=== PATIENT | female | born 1945 | race Caucasian/White ===

== ENCOUNTER → 2017-12-12 | Outpatient (CLI) | payer MEDICARE ==
[~2017-12-12] MED LIST: ASP325T PO; CLN.1T PO; MULT-963 PO; NEBI5TAB8 PO; NF-TELM20T PO; NFNEB10T PO; NFPRILOC40 PO; OXYB10TA PO; RNT150T PO; SIMV20TA3 PO; SIMV40TA4 PO; TELM1TAB3 PO; TLT2T PO
== END ==
LOC: CARD 14:03
PROVIDERS: ATTEND Internal Medicine Cardiovascular Disease
DX: I48.0 Paroxysmal atrial fibrillation (principal); I10 Essential (primary) hypertension; M79.89 Other specified soft tissue disorders; Z86.73 Personal history of transient ischemic attack (TIA), and cerebral infarction without residual deficits
CPT/HCPCS: 93225; 93226

== ENCOUNTER → 2018-01-06 | Outpatient (CLI) | payer MEDICARE | LOC: CARD 08:50 | PROVIDERS: ATTEND Internal Medicine Cardiovascular Disease | DX: I48.0 Paroxysmal atrial fibrillation (principal); I10 Essential (primary) hypertension; M79.89 Other specified soft tissue disorders; Z86.73 Personal history of transient ischemic attack (TIA), and cerebral infarction without residual deficits | CPT/HCPCS: 93306; 93351 ==

== ENCOUNTER 2018-06-12 11:15 | Outpatient (CLI) | payer MEDICARE ==
[~2018-06-12] VITALS: Ht 170.2 cm; Wt 66.7 kg
[2018-06-12] MEDS ORDERED: SIMV20TA3 PO (12:04)
[2018-06-12] MEDS ORDERED: RIVA20TA PO (12:04)
[2018-06-12] MEDS ORDERED: MELA1TAB15 PO (12:04)
[2018-06-12] MEDS ORDERED: OMEP40CA36 PO (12:04)
[2018-06-12] MEDS ORDERED: LOSA100T8 PO (12:04)
[2018-06-12] MEDS ORDERED: METO-395 PO (12:04)
[2018-06-12] MEDS ORDERED: DOXA2TAB2 PO (12:04)
[2018-06-12] MEDS ORDERED: MIRA25TA PO (12:04)
== END 2018-06-12 12:05 | disposition home or self-care (01) ==
LOC: PREOP 11:15
PROVIDERS: ATTEND Surgery
DX: Z01.818 Encounter for other preprocedural examination (principal)

== ENCOUNTER 2018-06-17 08:45 | Day surgery (SDC) | payer MEDICARE ==
[~2018-06-17] VITALS: Ht 170.2 cm; Wt 66.7 kg
[~2018-06-17 08:45] MED LIST changes: +DOXA2TAB2 PO; +LOSA100T8 PO; +MELA1TAB15 PO; +METO-395 PO; +MIRA25TA PO; +OMEP40CA36 PO; +RIVA20TA PO
[2018-06-17 09:00] VITALS: BP 128/82
[2018-06-17] MEDS ORDERED: NS IV 500 ML 500 ML IV PRN (09:00)
[2018-06-17] MEDS ORDERED: fentaNYL INJECTION 100 MCG/2 ML AMP IVP ONE (09:15)
[2018-06-17] MEDS ORDERED: MIDAZOLAM 2 MG/2 ML (VERSED) VIAL IVP ONE (09:15)
[2018-06-17] MEDS ORDERED: LIDOCAINE JELLY 2% 6 ML SYRINGE MM PRN (09:15)
[2018-06-17] MEDS ORDERED: NS IV 500 ML 500 ML ONE (09:29)
[2018-06-17] MEDS ORDERED: LIDOCAINE JELLY 2% 6 ML SYRINGE ONE (10:04)
[2018-06-17] MEDS ORDERED: fentaNYL INJECTION 100 MCG/2 ML AMP ONE ×2 (10:04)
[2018-06-17] MEDS ORDERED: MIDAZOLAM 2 MG/2 ML (VERSED) VIAL ONE ×4 (10:04→10:38)
--- NOTE | 2018-06-17 10:14 | Conscious Sedation/ASA ---
Conscious Sedation Pre-Proced Time 09:45 ASA Score 2 For ASA 3 and 4: Consider anesthesia and medical clearance. Also, for patients with a history of failed moderate sedation consider anesthesia. Airway Lungs Heart ASA score ASA 1: a normal healthy patient ASA 2: a patient with a mild systemic disease (mid diabetes, controlled hypertension, obesity ASA 3: a patient with a severe systemic disease that limits activity (angina , COPD, prior Myocardial infarction) ASA 4: a patient with an incapacitating disease that is a constant threat to life (CHF, renal failure) ASA 5: a moribund patient not expected to survive 24 hrs. (ruptured aneurysm) ASA 6: a declared brain patient whose organs are being harvested. For emergent operations, add the letter E after the classification Mallampati Classification Grade 2 Sedation Plan Analgesia, Amnesia, Plan communicated to team members, Discussed options with patient/fam, Discussed risks with patient/fam The patient is an appropriate candidate to undergo the planned procedure, sedation, and anesthesia. The patient immediately re-assessed prior to indication. TRA VILLA MD Jun 17, 2018 10:14 am
--- NOTE | 2018-06-17 10:14 | Progress Note-Pre Operative ---
Pre-Operative Progress Note H&P Reviewed The H&P was reviewed, patient examined and no changes noted. Date Seen by Provider: Jun 17, 2018 Time Seen by Provider: :45 Date H&P Reviewed: Jun 17, 2018 Time H&P Reviewed: :45 Pre-Operative Diagnosis: hx polyp, family hx colon ca TRA VILLA MD Jun 17, 2018 10:14 am
[2018-06-17] MEDS ORDERED: HYDROcodone/APAP 5 MG/325 MG (LORTAB) TAB PO PRN (10:15)
[2018-06-17] MEDS ORDERED: ACETAMINOPHEN 325 MG TABLET PO PRN (10:15)
[2018-06-17] MEDS ORDERED: ONDANSETRON 4 MG/2 ML (SDV) Z0FRAN IV PRN (10:15)
[2018-06-17] MEDS ORDERED: fentaNYL INJECTION 100 MCG/2 ML AMP IVP PRN (10:15)
--- NOTE | 2018-06-17 10:19 | Discharge Inst-Surgical ---
D/C Lap Instructions-ALLEN Follow Up 5 years Activity as tolerated High Fiber Diet 25g or more per day Avoid Alcohol, Caffeine, Spicy [place] and Acid foods. Drink 64 fluid oz or more of fluids per day. Symptoms to Report: Fever over 101 degree F, Nausea/Vomiting If any problems/questions: Contact your physician or go to Emergency Room TRA VILLA MD Jun 17, 2018 10:19 am
--- NOTE | 2018-06-17 11:06 | Progress Note-Post Operative ---
Post-Operative Progess Note Surgeon (s)/Martial Arts Instructor (s) Surgeon TRA VILLA MD Martial Arts Instructor: none Pre-Operative Diagnosis hx polyp, family hx colon ca Post-Operative Diagnosis normal colon and rectum Procedure & Operative Findings Date of Procedure 06/17/18 Procedure Performed/Findings Colonoscopy Anesthesia Type CS Estimated Blood Loss Estimated blood loss (mL): minimal Specimens/Packing Specimens Removed none TRA VILLA MD Jun 17, 2018 11:06 am
[2018-06-17 11:20] VITALS: BP 138/79
[2018-06-17 11:45] VITALS: BP 159/89
[2018-06-17 11:55] VITALS: BP 159/89
--- NOTE | 2018-06-17 15:17 | OPERATIVE REPORT ---
DATE OF SERVICE: 06/17/2018 ATTENDING PRIMARY CARE PHYSICIAN: Dr. Rolle. PREOPERATIVE DIAGNOSIS: Screening colonoscopy with family history of colon cancer and personal history of colon polyps. POSTOPERATIVE DIAGNOSIS: Normal colon and rectum. PROCEDURE: Colonoscopy. SURGEON: Tra Villa MD ANESTHESIA: Conscious sedation. ESTIMATED BLOOD LOSS: Minimal. FINDINGS: No significant hemorrhoids identified. No diverticulosis. Remainder of the colon and rectum were normal. No polyps identified. DISPOSITION: The patient tolerated the procedure well. INDICATIONS: The patient is a 73-year-old female in need of a followup screening colonoscopy. She did have a colonoscopy in 2008 where a tubular adenoma was identified and removed. A repeat colonoscopy was done in 2012, which did not show any abnormalities. She does have a family history of colon cancer with her father being diagnosed with the disease at around age 76. She does not report any major issues with diarrhea nor constipation as well as no red blood per rectum nor any dark tarry stools. DESCRIPTION OF PROCEDURE: The patient was brought to the endoscopy suite, laid in the left lateral decubitus position. After adequate IV pain and sedating medications and conscious sedation anesthesia, a digital rectal examination was performed. No significant hemorrhoids identified. Normal sphincter tone was felt and there were no palpable masses. The endoscope was then intubated into the anus and rectum gently insufflated. The endoscope was then advanced to the valves of [place]ink[place] of the rectum with no polyps or any neoplasms identified. We then proceeded through the sigmoid colon where no diverticulosis identified. The endoscope was then advanced through the remainder of the descending, transverse and ascending colon to the cecum. These segments were normal. There were no polyps or any neoplasms identified throughout the colon or rectum. The endoscope was then slowly withdrawn while taking a second look and suctioning of residual air with no additional findings. The patient tolerated the procedure well. We will recommend continued medical management with a high fiber diet with at least 25 grams of fiber per day as well as 64 fluid ounces of water daily to promote soft stools on a daily basis. We will recommend a followup colonoscopy in approximately 5 years. Job ID: [id number] DocumentID: [id number] Dictated Date: 06/17/2018 10:52:37 Trailer Driver Date: 06/17/2018 15:16:10 Dictated By: TRA VILLA MD
== END 2018-06-17 12:00 | disposition home or self-care (01) ==
LOC: ENDO 08:45
PROVIDERS: ATTEND Surgery
DX: Z12.11 Encounter for screening for malignant neoplasm of colon (principal); Z80.0 Family history of malignant neoplasm of digestive organs; Z86.010 Personal history of colon polyps; I10 Essential (primary) hypertension; E78.00 Pure hypercholesterolemia, unspecified; I48.91 Unspecified atrial fibrillation; K21.9 Gastro-esophageal reflux disease without esophagitis; K59.09 Other constipation; Z96.652 Presence of left artificial knee joint; Z79.899 Other long term (current) drug therapy; Z79.01 Long term (current) use of anticoagulants; Z87.891 Personal history of nicotine dependence

== ENCOUNTER → 2018-08-12 | Outpatient (CLI) | payer MEDICARE ==
--- NOTE | 2018-08-12 16:46 | Diagnostic Imaging Report ---
EXAMINATION: Magnetic resonance imaging of the right knee without intravenous contrast DATE: August 12, 2018. COMPARISON: None. INDICATION: 73-year-old female, right knee pain. Injury in March 2018. Persistent knee pain and swelling. TECHNIQUE: Multiplanar, multisequence non contrast enhanced MR imaging was accomplished. FINDINGS: MENISCI: There is signal within the body and posterior horn of the medial meniscus not meeting strict MRI criteria for tear. There is a longitudinal horizontal type tear involving the anterior horn, body, and posterior horn of the lateral meniscus. LIGAMENTS AND TENDONS: The anterior and posterior cruciate ligaments are intact. The medial collateral ligament is intact. The iliotibial band, mid third lateral capsular ligament, fibular collateral ligament, biceps femoris tendon and conjoined tendon are intact. The quadriceps tendon and patella ligament are intact. JOINT: There is mild superficial irregularity of the cartilage of the median patellar ridge and medial patellar facet. There is very minimal degenerative-related subchondral edema underlying the medial patellar facet. The medial and lateral compartment cartilage is grossly intact. There is a small knee joint effusion without identified intra-articular body or prominent synovitis. BONE: The additional bone marrow signal is unremarkable. Specifically, negative for fracture, osteomyelitis, osteonecrosis, or marrow replacing process. BURSAE AND SOFT TISSUES: There is a small slit-like Grossman's cyst. There is mild soft tissue edema adjacent to the knee joint capsule. There is nonspecific prepatellar subcutaneous edema. IMPRESSION: 1. Longitudinal horizontal type tear involving the entire lateral meniscus. 2. Signal in the body and posterior horn of the medial meniscus meeting strict MRI criteria for definite diagnosis of tear. 3. Intact anterior and posterior cruciate ligaments. Additional ligaments and tendons are intact. 4. Very mild patellofemoral compartment arthritis. Small knee joint effusion without identified intra-articular body or prominent synovitis. 5. Small slit-like Grossman's cyst. 6. No acute fracture, bone contusion, or evidence of osteonecrosis. Dictated by: Dictated on workstation # [id number]
== END ==
LOC: RAD 15:21
PROVIDERS: ATTEND Orthopaedic Surgery
DX: M23.261 Derangement of other lateral meniscus due to old tear or injury, right knee (principal); M23.231 Derangement of other medial meniscus due to old tear or injury, right knee; M17.11 Unilateral primary osteoarthritis, right knee; M71.21 Synovial cyst of popliteal space [Baker], right knee
CPT/HCPCS: 73721

== ENCOUNTER → 2018-11-25 | Outpatient (CLI) | payer MEDICARE ==
[~2018-11-25] VITALS: Ht 170.2 cm; Wt 67.1 kg
[~2018-11-25] MED LIST changes: +KCL 10 MEQ TAB (MICRO K) PO ONE; +LOSA100T57 PO; -LOSA100T8 PO; +NS IV 1000 ML 1,000 ML IV NR; -RIVA20TA PO; +RIVA20TA2 PO
[2018-11-25 11:12] VITALS: BP 104/77
[2018-11-25 11:32] LABS: HEMOGLOBIN 13.7 G/DL (11.5-16.0); MEAN PLATELET VOLUME 10.3 FL (7.4-10.4); RED CELL DISTRIBUTION WIDTH 13.4 % (10.0-14.5); WHITE BLOOD COUNT 8.9 10^3/uL (4.3-11.0)
[2018-11-25 11:53] LABS: BUN/CREATININE RATIO 23; CALCIUM 8.9 MG/DL (8.5-10.1); CARBON DIOXIDE 24 MMOL/L (21-32); CHLORIDE 104 MMOL/L (98-107); CREATININE SERUM 0.86 MG/DL (0.60-1.30); GFR ESTIMATED > 60; GLUCOSE 131 MG/DL (70-105); LIPASE 16 U/L (8-78); POTASSIUM 3.3 MMOL/L (3.6-5.0); SODIUM 138 MMOL/L (135-145)
--- NOTE | 2018-11-25 12:58 | NUR ---
THIS RN CALLED LAB RESULTS TO [facility], NEW ORDERS RECEIVED FOR POTASSIUM 10MEQ TABS, 2 TABS.
[2018-11-25 13:15] VITALS: BP 104/77
== END ==
LOC: SDC 10:42
PROVIDERS: ATTEND Nurse Practitioner
DX: E86.0 Dehydration (principal); R11.2 Nausea with vomiting, unspecified; R19.7 Diarrhea, unspecified; R68.83 Chills (without fever); R52 Pain, unspecified
CPT/HCPCS: 36415; 80048; 83690; 85027; 86141; 87804; 96360; 96361

== ENCOUNTER → 2019-12-29 | Outpatient (CLI) | payer MEDICARE ==
[~2019-12-29] MED LIST changes: -KCL 10 MEQ TAB (MICRO K) PO ONE; -METO-395 PO; +MTP100TCR PO; -NS IV 1000 ML 1,000 ML IV NR; +OMEP40CA27 PO; -OMEP40CA36 PO; +SIMV20TA26 PO
--- NOTE | 2019-12-30 20:18 | Diagnostic Imaging Report ---
INDICATION: Routine screening. Comparison is made with prior mammogram from 06/08/2018 and 01/29/2010. 2-D and 3-D bilateral screening mammography was performed with CAD. The current study was also evaluated with a Computer Aided Detection (CAD) system. Both breasts are heterogeneously dense, limiting the sensitivity of mammography. Postbiopsy changes with marker clip in the upper and slightly outer left breast are noted. No dominant mass or malignant appearing microcalcifications are seen. There are benign parenchymal and vascular calcifications bilaterally. Axillae are unremarkable. IMPRESSION: No mammographic features suspicious for malignancy are identified. ACR BI-RADS Category 2: Benign findings. Result letter will be mailed to the patient. Note: At least 10% of breast cancer is not imaged by mammography. Dictated by: Dictated on workstation # [id number]
== END ==
LOC: RAD 15:12
PROVIDERS: ATTEND Internal Medicine
DX: Z12.31 Encounter for screening mammogram for malignant neoplasm of breast (principal)
CPT/HCPCS: 77063; 77067

== ENCOUNTER → 2020-06-29 | Outpatient (CLI) | payer MEDICARE | LOC: CARD 13:00 | PROVIDERS: ATTEND Nurse Practitioner Family | DX: I34.0 Nonrheumatic mitral (valve) insufficiency (principal); I10 Essential (primary) hypertension; I48.0 Paroxysmal atrial fibrillation; I27.21 Secondary pulmonary arterial hypertension | CPT/HCPCS: 93306 ==

== ENCOUNTER 2021-01-03 05:42 | Outpatient (CLI) | payer MEDICARE ==
[~2021-01-03] VITALS: Ht 170.2 cm; Wt 66.8 kg
[2021-01-03] MEDS ORDERED: ACET-3075 PO (10:11)
== END 2021-01-04 10:05 | disposition home or self-care (01) ==
LOC: PREOP 05:42
PROVIDERS: ATTEND Specialist
DX: Z01.818 Encounter for other preprocedural examination (principal)

== ENCOUNTER 2021-01-05 09:36 | Day surgery (SDC) | payer MEDICARE ==
[~2021-01-05] VITALS: Ht 170 cm; Wt 66.8 kg
[~2021-01-05 09:36] MED LIST changes: +ACET-3075 PO
[2021-01-05] MEDS ORDERED: PHENYLEPHRINE 10% OPHTH (NEO-SYN) 5 ML BTL OU PRN (09:45)
[2021-01-05] MEDS ORDERED: TROPICAMIDE 1% OPH SOLN (MYDRIACYL) 15 ML BTL OU PRN (09:45)
[2021-01-05] MEDS ORDERED: TETRACAINE 0.5% OPHTH SOLN 4 ML BTL (SINGLE DOSE ONLY) OU PRN (09:45)
[2021-01-05 09:56] VITALS: BP 159/76
--- NOTE | 2021-01-05 10:41 | Ophthalmologist Pre-Op Note ---
Pre-Operative Progress Note H&P Reviewed The H&P was reviewed, patient examined and no changes noted. Date H&P Reviewed: January 05, 2021 Time H&P Reviewed: 10:22 Pre-Op Dx Secondary Cataract, Right Eye NAVID VILLALOBOS MD January 05, 2021 10:41
--- NOTE | 2021-01-05 10:42 | Ophthalmology Operative Report ---
YAG Capsulotomy PREOPERATIVE DIAGNOSIS: Secondary Cataract Right Eye POSTOPERATIVE DIAGNOSIS: Secondary Cataract Right Eye PROCEDURE: YAG Capsulotomy, right eye SURGEON: Saul Villalobos ANESTHESIA: Topical anesthesia COMPLICATIONS: None ESTIMATED BLOOD LOSS: Minimal DESCRIPTION OF PROCEDURE: After proper informed consent was obtained, the patient's, a 75 female, right eye received one drop of Tropicamide and one drop of Tetracaine. The patient was then placed at the YAG laser and using a power of [3.5 ] millijoules and [ 16] bursts were used to fashion a central capsulotomy. The patient tolerated the procedure well without complications SAUL VILLALOBOS MD January 05, 2021 10:42
== END 2021-01-05 10:35 ==
LOC: SDC 09:36
PROVIDERS: ATTEND Specialist
DX: H26.491 Other secondary cataract, right eye (principal); M19.90 Unspecified osteoarthritis, unspecified site; R03.0 Elevated blood-pressure reading, without diagnosis of hypertension; Z87.891 Personal history of nicotine dependence; Z98.890 Other specified postprocedural states

== ENCOUNTER → 2021-01-10 | Outpatient (CLI) | payer MEDICARE ==
--- NOTE | 2021-01-10 15:49 | Diagnostic Imaging Report ---
INDICATION: Routine screening. COMPARISON: Prior mammogram 12/29/2019 and 06/08/2018. EXAMINATION: 2D and 3D bilateral screening mammography was performed with CAD. The current study was also evaluated with a Computer Aided Detection (CAD) system. FINDINGS: Both breasts remain heterogeneously dense, limiting the sensitivity of mammography. Biopsy changes on the left are again noted. No mass or malignant appearing microcalcifications are seen. Axillae are unremarkable. IMPRESSION: No mammographic features suspicious for malignancy are identified. ACR BI-RADS Category 2: Benign findings. Result letter will be mailed to the patient. Note: At least 10% of breast cancer is not imaged by mammography. Dictated by: Dictated on workstation # [id number]
== END ==
LOC: RAD 14:26
PROVIDERS: ATTEND Nurse Practitioner Family
DX: Z12.31 Encounter for screening mammogram for malignant neoplasm of breast (principal)
CPT/HCPCS: 77063; 77067

== ENCOUNTER 2021-01-23 05:29 | Outpatient (RCR) | payer MEDICARE ==
[~2021-01-23] VITALS: Ht 170.2 cm; Wt 68.1 kg
[~2021-01-23 05:29] MED LIST changes: +TRM50T PO
== END 2021-01-23 08:42 | disposition home or self-care (01) ==
LOC: PREOP 05:29
PROVIDERS: ATTEND Orthopaedic Surgery
DX: Z01.812 Encounter for preprocedural laboratory examination (principal); S72.001A Fracture of unspecified part of neck of right femur, initial encounter for closed fracture; Z20.822 Contact with and (suspected) exposure to COVID-19
CPT/HCPCS: 87635

== ENCOUNTER 2021-01-24 09:48 | Day surgery (SDC) | payer MEDICARE ==
[~2021-01-24] VITALS: Ht 170.2 cm; Wt 68.1 kg
[2021-01-24] VITALS (13 sets, daily range): BP systolic 137–200; BP diastolic 72–100
[~2021-01-24 09:48] MED LIST changes: +oxyCODONE/APAP 5/325MG (PERCOCET 5) TABLET PO PRN
--- NOTE | 2021-01-24 10:04 | Progress Note-Pre Operative ---
Pre-Operative Progress Note H&P Reviewed The H&P was reviewed, patient examined and no changes noted. Date Seen by Provider: Jan 24, 2021 Time Seen by Provider: 10:04 Date H&P Reviewed: Jan 24, 2021 Time H&P Reviewed: 10:04 Pre-Operative Diagnosis: impacted right femoral neck fracture SHARON VALVERDE MD Jan 24, 2021 10:04
--- NOTE | 2021-01-24 10:05 | Progress Note-Post Operative ---
Post-Operative Progess Note Surgeon (s)/Automotive Parts Salesperson (s) Surgeon SHARON VALVERDE MD Automotive Parts Salesperson: Jovani Apodaca Pre-Operative Diagnosis impacted right femoral neck fracture Post-Operative Diagnosis impacted right femoral neck fracture Procedure & Operative Findings Date of Procedure 01/24/21 Procedure Performed/Findings right hip percutaneous screw fixation Anesthesia Type spinal Estimated Blood Loss Estimated blood loss (mL): minimal Specimens/Packing Specimens Removed none Packing: none SHARON VALVERDE MD Jan 24, 2021 10:05
[2021-01-24] MEDS ORDERED: ceFAZolin INJECTION 1,000 MG ONE (10:10)
[2021-01-24] MEDS ORDERED: WATER (STERILE) FOR INJECTION 10 ML ONE (10:11)
[2021-01-24] MEDS ORDERED: ceFAZolin INJECTION 1,000 MG in WATER (STERILE) FOR INJECTION 10 ML IV ONE (10:15)
[2021-01-24] MEDS: LACTATED RINGERS 1,000 ML IV PRN ×2 (10:28→11:59)
[2021-01-24] MEDS ORDERED: proPOfol 200 MG/20 ML (DIPRIVAN) VIAL IV ONE (10:43)
[2021-01-24] MEDS ORDERED: fentaNYL INJ 100 MCG/2 ML AMP ONE (10:43)
[2021-01-24] MEDS ORDERED: SEVOFLURANE (ULTANE) 15 ML INHAL SOLN ONE (10:43)
[2021-01-24] MEDS ORDERED: LIDOCAINE PF 2% 5 ML (XYLOCAINE) VIAL ONE (10:43)
[2021-01-24] MEDS ORDERED: ONDANSETRON 4 MG/2 ML (SDV) Z0FRAN ONE (10:43)
[2021-01-24] MEDS ORDERED: MIDAZOLAM 2 MG/2 ML (VERSED) VIAL ONE (11:09)
[2021-01-24] MEDS ORDERED: BUPIVACAINE 0.25% 30 ML (SENSORCAINE) VIAL ONE (11:34)
[2021-01-24] MEDS ORDERED: BUPIVACAINE 0.5% 30 ML (SENSORCAINE) VIAL ONE (11:34)
--- NOTE | 2021-01-24 12:47 | Diagnostic Imaging Report ---
EXAMINATION: Fluoroscopy at 11:44 AM. INDICATION: Right hip pinning. TECHNIQUE: Fluoroscopic assistance was provided for Dr. Crenshaw during his right hip pinning procedure. 41.8 seconds of fluoroscopy time was utilized. FINDINGS: AP and lateral spot films of the right femur were obtained from the OR. The recent CT right hip exam of 01/22/2021 did show a nondisplaced slightly impacted subcapital fracture of the right femoral neck. There are now 3 orthopedic fixation screws obliquely traversing the right femoral neck and femoral head. The orthopedic hardware seems to be in good position and the fracture fragments remain nondisplaced. IMPRESSION: Fluoroscopic assistance was provided for Dr. Crenshaw. Dictated by: Dictated on workstation # [id number]
--- NOTE | 2021-01-24 13:56 | Physical Therapy Progress Note ---
Therapy Progress Note Orders received for PT evaluation. Patient is still not back to her room from surgery. Will perform evaluation in the morning. RAY ASTORGA PT Jan 24, 2021 13:56
[2021-01-24] MEDS ORDERED: PATIENT MAY USE OWN MEDS, ALL MC SCH ×2 (16:45→17:15)
[2021-01-24] MEDS ORDERED: ONDANSETRON 4 MG/2 ML (SDV) Z0FRAN IVP PRN (17:15)
[2021-01-24] MEDS: fentaNYL INJ 100 MCG/2 ML AMP IVP PRN ×2 (17:50→23:31)
[2021-01-24] MEDS: LOSARTAN 100 MG (COZAAR) TABLET PO SCH (18:05)
--- NOTE | 2021-01-24 18:30 | OPERATIVE REPORT ---
DATE OF SERVICE: 01/24/2021 PREOPERATIVE DIAGNOSIS: Impacted right femoral neck fracture. POSTOPERATIVE DIAGNOSIS: Impacted right femoral neck fracture. PROCEDURE: Right femoral neck percutaneous screw fixation. SURGEON: Eligio Valverde MD SUPERVISOR ABATTOIR: Jovani Apodaca, who assisted throughout the procedure and closed the incision. ANESTHESIA: Spinal by Dr. Velasco. ESTIMATED BLOOD LOSS: Minimal. DRAINS: None. COMPLICATIONS: None. POSTOPERATIVE PLAN: Toe touch weightbearing right lower extremity. MATERIALS: Synthes 7.3 short threaded cancellous screws. The patient was transferred to the recovery room awake and in stable condition. STATEMENT OF MEDICAL NECESSITY: The patient is a 75-year-old female, who fell last week. She complained of hip pain, presented to the office and was found to have an impacted right femoral neck fracture identified by CT scan. It was recommended that the patient undergo operative fixation to ensure that it stayed well reduced with her ambulatory status. DESCRIPTION OF PROCEDURE: After risks and benefits of procedure were discussed and questions were answered, an informed consent was signed and placed on chart. The operative site was confirmed in the preoperative holding area initialed by the surgeon. The patient was then transferred to the operating room and after adequate levels of regional anesthetic were obtained, a timeout was called, confirming the operative site. The patient was carefully placed on the fracture table and fluoroscopy in the AP and lateral planes revealed anatomic alignment of the fracture. The right lower extremity was prepped and draped in the usual sterile fashion. Through a stab incision laterally, three guidewires were passed into the femoral head. These were felt to be in excellent position fluoroscopically. These were then overdrilled an 85 mm 7.3 Synthes screws were placed, all with excellent purchase. Fluoroscopy in the AP and lateral planes revealed well-reduced fracture with well-placed hardware. The wound was copiously irrigated and closed with 3-0 nylon in vertical mattress interrupted fashion. Incision was infiltrated with plain Marcaine. A soft dressing was applied and the patient was transferred to the recovery room awake and in stable condition. Job ID: [id number] DocumentID: [id number] Dictated Date: 01/24/2021 11:58:45 Cytology Teacher Date: 01/24/2021 18:28:04 Dictated By: ELIGIO VALVERDE MD
[2021-01-24] MEDS: oxyCODONE/APAP 5/325MG (PERCOCET 5) TABLET PO PRN ×2 (19:34→23:31)
[2021-01-24] MEDS: doxAzosin 4 MG (CARDURA) TAB PO SCH (20:35)
[2021-01-24] MEDS ORDERED: ACETAMINOPHEN 500 MG TAB (TYLENOL) PO NR (21:00)
[2021-01-24] MEDS ORDERED: diphenhydrAMINE 25 MG TAB (BENADRYL) PO NR (21:00)
[2021-01-24] MEDS: meTOprolol SUCCINATE 100 MG (TOPROL XL) TAB PO SCH (21:04)
[2021-01-25 01:52] VITALS: BP 161/67
[2021-01-25] MEDS: fentaNYL INJ 100 MCG/2 ML AMP IVP PRN ×2 (02:00→06:31)
[2021-01-25] MEDS: oxyCODONE/APAP 5/325MG (PERCOCET 5) TABLET PO PRN ×2 (04:08→08:52)
[2021-01-25 04:10] VITALS: BP 144/67
--- NOTE | 2021-01-25 08:06 | Progress Note ---
Standard Progress Note Progress Notes/Assess & Plan Date Seen by a Provider: Jan 25, 2021 Time Seen by a Provider: 08:04 Progress/Assessment & Plan admitted due to spinal persistence no complaints Vital Signs Date Time Temp Pulse Resp B/P (MAP) Pulse Ox O2 Delivery O2 Flow Rate FiO2 01/25/21 04:10 36.5 60 18 144/67 (92) 97 Room Air 01/25/21 01:52 59 161/67 (98) 01/24/21 23:18 36.3 64 18 184/74 (110) 96 Room Air 01/24/21 21:53 62 185/86 (119) 01/24/21 20:38 Room Air 01/24/21 20:26 36.8 62 18 200/90 (126) 96 Room Air 01/24/21 17:31 Room Air 01/24/21 17:29 36.4 65 20 184/100 (128) 96 Room Air 01/24/21 13:40 35.6 56 18 191/86 100 Room Air 01/24/21 13:10 35.6 48 18 169/78 100 Room Air 01/24/21 12:40 Room Air 01/24/21 12:40 35.7 52 18 162/82 100 Room Air 01/24/21 12:40 36.1 20 157/79 (105) 100 Room Air 01/24/21 12:30 Room Air 01/24/21 12:30 20 162/85 (110) 100 Room Air 01/24/21 12:20 20 161/83 (109) 100 Room Air 01/24/21 12:15 Room Air 01/24/21 12:10 20 154/77 (102) 100 Room Air 01/24/21 12:00 Room Air 01/24/21 12:00 20 137/75 (95) 100 Room Air 01/24/21 11:54 36.1 20 137/72 (93) 100 Room Air 01/24/21 11:54 Room Air 01/24/21 10:10 36.6 65 18 177/92 (120) 95 Room Air I & O 01/25/21 07:00 Intake Total 2530 ml Output Total 700 ml Balance 1830 ml RLE--dressing intact. intact DF and PF of toes and ankle. sensation intact throughout s/p R hip perc screws regular diet FU 2 weeks percocet for pain PWB ZAFUTA,SHARON P MD Jan 25, 2021 08:06
[2021-01-25 08:23] VITALS: BP 171/75
[2021-01-25] MEDS: LOSARTAN 100 MG (COZAAR) TABLET PO SCH (08:50)
[2021-01-25] MEDS: meTOprolol SUCCINATE 100 MG (TOPROL XL) TAB PO SCH (08:50)
[2021-01-25] MEDS: doxAzosin 4 MG (CARDURA) TAB PO SCH (08:50)
[2021-01-25] MEDS ORDERED: SIMvastatin 20 MG (ZOCOR) TAB PO SCH (09:00)
[2021-01-25] MEDS ORDERED: RIVAROXABAN 20 MG TABLET (XARELTO) PO NR (09:00)
[2021-01-25] MEDS ORDERED: LOSARTAN 100 MG (COZAAR) TABLET PO SCH (09:00)
--- NOTE | 2021-01-25 10:30 | Physical Therapy Evaluation ---
PT Evaluation-General Medical Diagnosis Admission Date January 24, 2021 Medical Diagnosis: right femoral neck fracture Onset Date: Jan 19, 2021 Therapy Diagnosis Therapy Diagnosis: debility Height/Weight Height (Feet): 5 Height (Inches): 7.00 Weight (Pounds): 148 Weight (Ounces): 0.0 Precautions Precautions/Isolations: Fall Prevention, Standard Precautions Weight Bear Status Right Lower Extremity: Right Touch Toe Bearing Left Lower Extremity: Left Weight Bearing/Tolerated USE WALKER TO AMBULATE Referral Physician: Den Reason for Referral: Evaluation/Treatment Medical History Pertinent Medical History: HTN, Smoking Current History patient reports she was walking her dog and another dog came after them causing her fall. She walked on it for almost a week per her report. Reviewed History: Yes Social History Home: Multilevel Current Living Status: Alone Entry Into Home: Stairs With Railing PT Steps Into Home: 4 PT Steps Inside Home: 12 Prior Prior Level of Function SCALE: Activities may be completed with or without assistive devices. 5-Lqafqgbiap-ndubihu completes the activity by him/herself with no assistance from a helper. 5-Set-up or Clean-up Assistance-helper sets up or cleans up; patient completes activity. [place] assists only prior to or following the activity. 4-Supervision or Touching Assistance-helper provides verbal cues and/or touching/steadying and/or contact guard assistance as patient completes ac tivity. Assistance may be provided throughout the activity or intermittently. 3-Partial/Moderate Assistance-helper does LESS THAN HALF the effort. [place] lifts, holds or supports trunk or limbs, but provides less than half the effort. 2-Substantial/Maximal Assistance-helper does MORE THAN HALF the effort. [place] lifts or holds trunk or limbs and provides more than half the effort. 6-Dcoqgnmxu-hyrwjn does ALL the effort. Patient does none of the effort to complete the activity. Or, the assistance of 2 or more helpers is required for the patient to complete the activity. If activity was not attempted, code reason: 7-Patient Refused. 9-Not Applicable-not attempted and the patient did not perform the activity before the current illness, exacerbation or injury. 10-Not Attempted due to Environmental Limitations-(lack of equipment, weather restraints, etc.). 88-Not Attempted due to Medical Conditions or Safety Concerns. Bed Mobility: 6 Transfers (B,C,W/C): 6 Gait: 6 Stairs: 6 Indoor Mobility (Ambulation): Independent Stairs: Independent Prior Devices Use: None PT Evaluation-Current Subjective Patient agrees to PT and reports she is going home. Pain Numeric Pain Scale: 5-Moderate Pain Location: Right Location Body Site: Hip Pain Description: Acute Objective Patient Orientation: Normal For Age ROM/Strength ROM Lower Extremities bilateral LE WFL Strength Lower Extremities right LE4/5 grossly/left LE 4+/5 grossly Integumentary/Posture Bowel Incontinence: No Bladder Incontinence: No Posture WFL Neuromuscular (Tone, Coordination, Reflexes) grossly intact Sensory Vision: Functional Hearing: Functional Sensation Right Lower Extremit: Intact Sensation Left Lower Extremity: Intact Transfers Roll Left to Right (QC): 6 Sit to Lying (QC): 6 Lying to Sitting/Side of Bed(Q: 6 Sit to Stand (QC): 6 Chair/Ycj-vj-Gesmf Xfer(QC): 6 Toilet Transfer (QC): 6 Gait Does the Patient Walk?: Yes Mode of Locomotion: Walk Anticipated Mode of Locomotion: Walk Walk 10 feet (QC): 6 Walk 50 ft with 2 Turns(QC): 6 Walk 150 ft (QC): 6 Walking 10ft/uneven surface-QC: 6 Distance: 200' x 2 Gait Assistive Device: FWW Comments/Gait Description TTWB compliance right LE/functional gait sequence Stairs #of Steps: 4 1 Step (curb) (QC): 6 4 Steps (QC): 6 12 Steps (QC): 88 Walking Assistive Device: Cane (SBQC and left hand rail) Treatment Patient performed exercises LAQ, AP, QS, HS, SLR and reports she did these exercises with her knee surgery. Patient voices good knowledge of exercise program. Assessment/Needs 75 y.o. female, is currently at independent LOF with all gross motor skills. She safely performed ambulation TTWB right LE and stairs without difficulty. Rehab Potential: Fair PT Plan Treatment/Plan Treatment Plan: Discontinue PT, goals met Treatment Duration: Jan 25, 2021 Frequency: 1 time per week Estimated Hrs Per Day: .5 hour per day Patient and/or Family Agrees t: Yes Discharge Recommendations Therapy Discharge Recommendati: Home & Family Time/GCodes Time In: 805 Time Out: 826 Total Billed Treatment Time: 21 Total Billed Treatment 1 visit EVModC 21 min GENARO TORRES PT Jan 25, 2021 10:30
[2021-01-25 11:00] VITALS: BP 171/75
== END 2021-01-25 11:00 | disposition home or self-care (01) ==
LOC: SDC 09:48 → EDSTATUS 11:45 → 4TH 16:58 → SDC 01-25 11:00
PROVIDERS: ATTEND Orthopaedic Surgery
DX: S72.001A Fracture of unspecified part of neck of right femur, initial encounter for closed fracture (principal); I10 Essential (primary) hypertension; K21.9 Gastro-esophageal reflux disease without esophagitis; E78.00 Pure hypercholesterolemia, unspecified; F17.210 Nicotine dependence, cigarettes, uncomplicated; W19.XXXA Unspecified fall, initial encounter; Z79.01 Long term (current) use of anticoagulants; Z88.5 Allergy status to narcotic agent; Z79.891 Long term (current) use of opiate analgesic; Z96.652 Presence of left artificial knee joint; Z98.890 Other specified postprocedural states
CPT/HCPCS: 27235; 76000; 87081; 97162; C1713; C1769

== ENCOUNTER → 2022-03-12 | Outpatient (CLI) | payer MEDICARE ==
[~2022-03-12] MED LIST changes: -OMEP40CA27 PO; +OMEP40CA6 PO; -oxyCODONE/APAP 5/325MG (PERCOCET 5) TABLET PO PRN
--- NOTE | 2022-03-12 15:40 | Diagnostic Imaging Report ---
INDICATION: Bilateral digital 3-D screening with CAD. COMPARISON: , 12/2019 and 05/2018. FINDINGS: Density 3. No breast mass, spiculated lesion, architectural distortion, suspicious calcifications or evidence of malignancy. IMPRESSION: BI-RADS Category 1 ACR BI-RADS Category 1: Negative. Result letter will be mailed to the patient. Note: At least 10% of breast cancer is not imaged by mammography. Dictated by: Dictated on workstation # [id number]
== END ==
LOC: RAD 13:00
PROVIDERS: ATTEND Internal Medicine
DX: Z12.31 Encounter for screening mammogram for malignant neoplasm of breast (principal)
CPT/HCPCS: 77063; 77067

== ENCOUNTER → 2023-06-02 | Outpatient (CLI) | payer MEDICARE ==
[~2023-06-02] MED LIST changes: -LOSA100T57 PO; +LOSA100T58 PO
--- NOTE | 2023-06-03 08:57 | Diagnostic Imaging Report ---
INDICATION: Routine screening. COMPARISON: 03/12/2022 and 01/10/2021. TECHNIQUE: 2D and 3D bilateral screening mammography was performed with CAD. FINDINGS: Both breasts are heterogeneously dense, limiting the sensitivity of mammography. The parenchymal pattern is stable. There is a biopsy marker clip in the left breast. There are scattered benign calcifications. No mass or malignant-appearing microcalcifications are seen. The axillae are unremarkable. IMPRESSION: No mammographic features suspicious for malignancy are identified. ACR BI-RADS Category 2: Benign findings. Result letter will be mailed to the patient. Note: At least 10% of breast cancer is not imaged by mammography. Dictated by: Dictated on workstation # [id number]
== END ==
LOC: RAD 14:30
PROVIDERS: ATTEND Internal Medicine
DX: Z12.31 Encounter for screening mammogram for malignant neoplasm of breast (principal)
CPT/HCPCS: 77063; 77067